=== PATIENT | female | born 1985 | race Caucasian/White ===

== ENCOUNTER 2018-12-24 06:15 | Inpatient (IN) | payer OTHER ==
[2018-12-24] VITALS (14 sets, daily range): BP systolic 138–170; BP diastolic 60–92; PULSE 81–98; TEMP 97.9–98.3
[~2018-12-24] VITALS: Ht 170.2 cm; Wt 121.4 kg
[~2018-12-24 06:15] MED LIST: DEPO-PROVER150 MG/M1 IM; MULTI VITAMINS1 TAB; NO HOME MEDICATIONS
[2018-12-24 21:35] LABS: BASO % 0.1 % (0.0-2.0); EOS % 0.1 % (0-4.0); GRAN # 11.2 (1.4-6.5); GRAN % 80.5 % (42.2-75.2); HEMATOCRIT 40.3 % (37.0-47.0); HEMOGLOBIN 13.9 g/dl (12.5-16.0); LYMPH # 1.9 (1.2-3.4); LYMPH % 13.4 % (20.0-51.0); MEAN CELL VOLUME 88 fl (80.0-100.0); MEAN CORPUSCULAR HEMOGLOBIN 30 pg (27.0-31.0); MEAN CORPUSCULAR HGB CONC 35 g/dl (33.0-37.0); MEAN PLATELET VOLUME 12.1 fl (7.4-10.4); MONO # 0.8 (0.1-0.6); MONO % 5.5 % (1.7-9.3); PLATELET COUNT 237 K/mm3 (130-400); REDCELL DISTRIBUTION WIDTH-CV 12.5 % (11.5-14.5)
[2018-12-24 22:57] LABS: ALANINE AMINOTRANSFERASE < 6 U/L (9-52); ALBUMIN 3.7 gm/dL (3.5-5.0); ALKALINE PHOSPHATASE 165 U/L (50-136); ANION GAP 12 mmol/L (7-16); AST,SGOT 24 U/L (15-37); BILIRUBIN,TOTAL 0.3 mg/dL (0.0-1.0); BLOOD UREA NITROGEN 14 mg/dL (7-17); CALCIUM 9.4 mg/dL (8.4-10.2); CARBON DIOXIDE 21 mmol/L (22-30); CHLORIDE 105 mmol/L (98-107); CREATININE, serum 0.73 (0.52-1.25); GLUCOSE 74 mg/dL (74-106); POTASSIUM 4.1 mmol/L (3.4-5.0); SODIUM 138 mmol/L (137-145); TOTAL PROTEIN 7.3 gm/dL (6.4-8.2)
[2018-12-25] VITALS (21 sets, daily range): BP systolic 111–165; BP diastolic 64–91; PULSE 79–112; TEMP 97.8–98.3
--- NOTE | 2018-12-25 02:50 | NUR ---
0110- Patient complete dialation at this time. Patient instructed on pushing, patient verbalized understanding. 0113- Practice push at this time. 0130- Patient in lithotomy, stirups at this time. 0230- Dr. Gamboa called for delivery. 0245- Dr. Gamboa at bedside for delivery. 0250- Spontaneous delivery of viable male at this time. 0253- Spontaneous delivery of intact placenta, pitocin rapidly infusing. EBL 200cc. Apgars 6,8,8 per nursery nurse
--- NOTE | 2018-12-25 10:40 | NUR ---
Initial visit attempt; Patient out of room, [employer] Rec[employer]iter left card of congratulations for the of her son and information regarding the availability of [facility] [place].
[2018-12-26 01:45] VITALS: BP 126/83; PULSE 85
[2018-12-26 06:55] VITALS: BP 138/76; PULSE 89; TEMP 98.3
[2018-12-26 15:30] VITALS: BP 149/96; PULSE 83; TEMP 98.4
[2018-12-26 20:00] VITALS: BP 142/78; PULSE 90; TEMP 98.4
[2018-12-27] VITALS: BP 138/79; PULSE 87; TEMP 98.4
--- NOTE | 2018-12-27 02:30 | NUR ---
Orders received to discharge patient. [facility] is being transferred to [facility].
[2018-12-27 04:00] VITALS: BP 144/94; PULSE 84; TEMP 97.9
== END 2018-12-27 04:40 | disposition home or self-care (01) | DRG 807 ==
LOC: OB 06:15 → LDR 06:19 → OB 19:46 → LDR 19:46 → OB 12-25 05:15
PROVIDERS: ADMIT Obstetrics & Gynecology
PROC: 10E0XZZ Delivery of Products of Conception, External Approach (ICD-10-PCS; principal; 2018-12-25)
PROC: 0HQ9XZZ Repair Perineum Skin, External Approach (ICD-10-PCS; 2018-12-25)
DX: O99.824 Streptococcus B carrier state complicating childbirth (principal); Z37.0 Single live birth; O69.1XX0 Labor and delivery complicated by cord around neck, with compression, not applicable or unspecified; O70.0 First degree perineal laceration during delivery; O99.62 Diseases of the digestive system complicating childbirth; K21.9 Gastro-esophageal reflux disease without esophagitis; Z3A.40 40 weeks gestation of pregnancy
CPT/HCPCS: J2540; J2590; J7120

== ENCOUNTER → 2024-05-28 | Outpatient (CLI) | payer OTHER | LOC: COL.RAD 08:24 | DX: R10.32 Left lower quadrant pain (principal); Z97.5 Presence of (intrauterine) contraceptive device ==